=== PATIENT | male | born 1995 | race Caucasian/White ===

== ENCOUNTER 2023-01-03 14:57 | Outpatient (AMB) | payer OTHER, SELFPAY ==
--- NOTE | 2023-01-03 15:25 | AM.OFFWIN_ITS ---
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 Pt states he feels pressure around his nose and eyes for the last four days. 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 Reporting symptoms of sinus congestion, sore throat and difficulty swallowing. Low-grade fever. No family member is sick. No recent travel. Patient reports symptoms of malaise and fatigue. PFSH Social History Patient Tobacco Use Status: Never used Tobacco Physical Exam Vital Signs: Last Vital Signs Temp 97.8 F 01/03/23 15:27 Pulse 97 01/03/23 15:27 BP 120/72 01/03/23 15:27 Pulse Ox 100 01/03/23 15:27 Oxygen Delivery Method Room Air 01/03/23 15:27 Const General: cooperative and healthy appearing Nutritional Appearance: well nourished Orientation/consciousness: patient oriented x3 Limitations: no limitations HEENT Head: Yes normal to inspection Eyes General: appearance normal, both eyes and all related structures Neck Neck: Yes normal visual inspection Chest Chest palpation & inspection: normal palpation of entire chest wall Resp Effort & Inspection: normal respiratory effort Neuro General: patient oriented x3 Assessment & Plan Assessment & Plan (1) Upper respiratory tract infection: Code(s): J06.9 - Acute upper respiratory infection, unspecified Plan: Increase fluid intake. Tylenol for aches and pains. If symptoms worsen, follow-up here for a recheck. No antibiotics needed. Coding Level of Care Code Est Pt Level 3 (90376) Diagnoses Upper respiratory tract infection J06.9
[2023-01-03 15:27] VITALS: BP 120/72; PULSE 97; TEMP 36.6; O2SAT 100
== END 2023-01-03 15:57 | disposition home or self-care (01) ==
PROVIDERS: PCP Pediatrics; Visit Provider Internal Medicine
DX: J06.9 Acute upper respiratory infection, unspecified (principal)
CPT/HCPCS: 99213